=== PATIENT | female | born 1990 | race African-American/Black ===

== ENCOUNTER 2018-10-18 21:45 | Emergency (ER) | payer OTHER | END 2018-10-19 00:46 | disposition home or self-care (01) | LOC: M.ERS 21:45 | DX: K21.9 Gastro-esophageal reflux disease without esophagitis (principal); R07.9 Chest pain, unspecified ==

== ENCOUNTER 2018-12-20 09:40 | Observation (INO) | payer OTHER ==
[~2018-12-20 09:40] MED LIST: CARAFATE 1 GM TA1 GM PO; LANSOPRAZOLE30 MG PO
[2018-12-20 10:30] LABS: HEMOGLOBIN 12.4 gm/dL (12.0-15.0)
--- NOTE | 2018-12-20 12:03 | H ---
[address] [address] HISTORY AND PHYSICAL Name: RUBY JASSO Room: [facility]..#: [id number] Admission: 12/20/18 Attend Phys: Rasheeda Francisco MD Discharge: Date of : 89 Report #: [id number] THIS REPORT FOR: //name// CC: Rasheeda Kellogg DATE OF SERVICE: 12/20/2018 The patient to be treated on 12/20/2018. ADMITTING DIAGNOSIS: Symptomatic biliary colic. HISTORY OF PRESENT ILLNESS: The patient is a 28-year-old female, who presented to my office with complaints of right upper quadrant discomfort and dyspepsia. She was worked up by her private medical physician and found to have cholelithiasis and was referred for surgical treatment. PAST MEDICAL HISTORY: Unremarkable. PAST SURGICAL HISTORY: Also unremarkable. SOCIAL HISTORY: She does not smoke or currently drink any alcohol. She does not use illegal drugs. REVIEW OF SYSTEMS: Otherwise, just abdominal pain, no chest pain, cough or shortness of breath. PHYSICAL EXAMINATION: GENERAL: Modestly obese well-developed female. HEAD, EARS, EYES, NOSE AND THROAT: Unremarkable. NECK: Supple. LUNGS: Clear. CARDIAC: Regular rate and rhythm without murmur. ABDOMEN: Soft, normal bowel sounds. EXTREMITIES: Without varicosities or pitting edema. IMPRESSION: Symptomatic cholelithiasis. PLAN: I have outlined laparoscopic cholecystectomy, its risks and benefits including bleeding, infection, hernia, injury to bile ducts or bowel, which she understands those risks and benefits and wishes to proceed with surgical treatment. <ELECTRONICALLY SIGNED> By: Rasheeda Francisco MD 12/20/18 1203 1211 1226Rasheeda Francisco MD /nt
--- NOTE | 2018-12-20 18:37 | NUR ---
PATIENT ARRIVED TO UNIT AT 182. ALERT AND ORIENTED X 4. DROWSY, BUT EASY TO AROUSE. VITAL SIGNS STABLE ON 3L O2 NASAL CANULA. AFEBRILE. DENIES PAIN AND NAUSEA AT THIS TIME. ORIENTED PATIENT TO ROOM. CALL LIGHT WITHIN REACH. NURSING WILL CONTINUE TO MONITOR.
[2018-12-20 18:42] VITALS: BP 120/69
[2018-12-20 19:29] LABS: HEMATOCRIT 38.9 % (37.0-47.0); HEMOGLOBIN 12.8 gm/dL (12.0-15.0); MCH 27.9 pg (26.0-34.0); MCV 84.5 fL (80.0-100.0); MPV 8.3 fl. (7.2-11.1); RBC 4.6 mil/uL (4.20-5.00); WBC 13.4 thou/uL (4.0-11.0)
[2018-12-20 20:35] VITALS: BP 111/65
--- NOTE | 2018-12-20 22:55 | OP ---
[address] [address] OPERATIVE REPORT Name: RUBY JASSO Room: [address] Richard Mishra#: [id number] Admission: 12/20/18 Attend Phys: Rasheeda Francisco MD Discharge: Date of : 89 Report #: [id number] THIS REPORT FOR: //name// CC: Rasheeda Kellogg DATE OF SERVICE: 12/20/2018 PREOPERATIVE DIAGNOSIS: Symptomatic biliary colic. POSTOPERATIVE DIAGNOSIS: Chronic cholecystitis. OPERATIVE PROCEDURE: Laparoscopic cholecystectomy. ANESTHESIA: General endotracheal. OPERATIVE FINDINGS: Gallbladder without adhesions, small stones. DESCRIPTION OF PROCEDURE: The patient was placed under general endotracheal anesthesia and the abdomen was prepped and draped in a sterile fashion. A timeout taken. IV antibiotics administered. I began by infiltrating in the infraumbilical crease with 0.5% Marcaine followed by a transverse incision at that location. Pickups and cautery were used to dissect down to the anterior abdominal wall with the aid of an S retractor. The abdominal wall was grabbed with 2 Kochers and cleared with cautery and then transversely incised with a #15 scalpel blade. Blunt dissection with a mosquito into the peritoneal cavity was accomplished without injury to underlying abdominal viscera. A 0 PDS was looped through this incision site and a size 12 applied medical Brando trocar was placed into the peritoneal cavity and secured at the skin. Insufflation with carbon dioxide to 5 liters was completed and a 5 mm 30-degree scope was inserted. The right upper quadrant was inspected and under direct visualization, infiltration in the subcostal margin region at the epigastric, midclavicular and anterior axillary line followed by 3 small incisions and followed by 3 bladeless 5 mm trocars. The patient then was placed in reverse Trendelenburg left lateral decubitus position and the gallbladder was grasped in 2 locations and tented towards the diaphragm. Meticulous dissection at the triangle of Calot dissected out both the cystic artery. These were then encircled with 3 Hemoclips and divided with laparoscopic scissors. Handheld cautery then was used to dissect the gallbladder off the undersurface of the liver. During that dissection, we got into the back wall of the gallbladder and a small amount of stones, debris and bile escaped into the subhepatic space. Once the gallbladder was free from its attachment, I changed position of the camera from the umbilical to the epigastric port and through the umbilical port, an Endopouch was fed into the abdomen. The gallbladder was placed into the pouch and the pouch was closed. I then retrieved the gallbladder and pouch through the umbilical incision site with pneumoperitoneum [place] [address] OPERATIVE REPORT Name: RUBY JASSO Room: [address] M.R.#: [id number] Admission: 12/20/18 Attend Phys: Rasheeda Francisco MD Discharge: Date of : 89 Report #: [id number] the camera placed at the umbilical port. I then carefully irrigated and aspirated the subhepatic space until there was no bile coming back from the effluent of aspiration. I then cauterized small bleeding points in the liver bed. Pneumoperitoneum was then released. Laparoscopic instruments and trocars were removed and the patient was placed back in the neutral position. The 0 PDS was tied at the umbilical stalk and infiltrated with 0.5% Marcaine and then all four incisions were closed with buried 4-0 PDS sutures and sealed with Dermabond. Estimated blood loss 1 mL. Sponge and instrument count correct. The patient was extubated, returned to recovery in stable condition. <ELECTRONICALLY SIGNED> By: Rasheeda Francisco MD 12/20/18 2255 1313 [id number] Francisco MD /nt
[2018-12-21 00:17] VITALS: BP 108/57
[2018-12-21 03:36] VITALS: BP 105/59; BP 108/57
[2018-12-21 04:20] LABS: ALBUMIN 3.1 g/dL (3.4-5.0); CALCIUM 8.6 mg/dL (8.5-10.1); CREATININE 0.7 mg/dL (0.6-1.3); TOTAL BILIRUBIN 0.7 mg/dL (<0.1-1.0); TOTAL PROTEIN 6.8 g/dL (6.4-8.2)
[2018-12-21 05:40] LABS: HEMATOCRIT 38.4 % (37.0-47.0); HEMOGLOBIN 12.5 gm/dL (12.0-15.0); MCHC 32.5 g/dL (28.0-37.0); MCV 86.2 fL (80.0-100.0); MPV 8.6 fl. (7.2-11.1); RBC 4.45 mil/uL (4.20-5.00); RDW-CV 12.9 % (10.5-14.5); WBC 12.2 thou/uL (4.0-11.0)
--- NOTE | 2018-12-21 06:17 | NUR ---
PT RECEIVING IV PAIN MED X1 FOR CO LOW ABD PAIN AT HS, HYDROCODONE X1 0100. TOLERATING CLEAR LIQUIDS-ATE HALF AN ICE CREAM SHAKE FAMILY MEMBERS BROUGHT IN WITHOUT N/V. O2 2L NC, CONTINUOUS PULSE OX ON. AM LABS DRAWN. L HAND IVF INFUSING PER PUMP. UP WITH SBA TO BSC TO VOID OVERNIGHT. SCDS ON AND OPERATING. ANTICIPATING DISCHARGE HOME TODAY. ABLE TO USE CALL LITE AND MAKE NEEDS KNOWN.
[2018-12-21 07:50] VITALS: BP 121/77
[2018-12-21] MEDS ORDERED: NORCO 5-325 TA1 EAC1 PO (09:14)
[2018-12-21 09:15] VITALS: BP 121/77
--- NOTE | 2018-12-21 10:28 | NUR ---
SPOKE WITH DR. MEHTA THIS AM, OK FOR PATIENT TO HAVE REG DIET AND DISCHARGE HOME IF TOLERATING AND PAIN UNDER CONTROL. PATIENT GIVEN PRN HYDROCODONE FOR ABD PAIN, WELL CONTROLLED. TOLERATED REG DIET. DERMABOND REMAINS INTAKE TO ABD. PATIENT VERBALIZES UNDERSTANDING OF PAPERWORK AND SCRIPTS. IV DC'D. PATIENT TAKEN OUT VIA WHEELCHAIR WITH ALL BELONGINGS.
--- NOTE | 2018-12-22 13:07 | PATH ---
[facility] [address] [place] [address] PATHOLOGY RPT PROCEDURE Name: RUBY JASSO Room: [address] Richard Mishra#: [id number] Admission: 12/20/18 Date of : 89 Discharge: 12/21/18 Report #: [id number] Path Case #: [id number] [facility] Accession Number: [id number] . 01 Material submitted: . gallbladder - GALLBLADDER WITH CONTENTS . 01 Clinical history: . Calculus of gallbladder . 02 Diagnosis: Gallbladder with contents: - Chronic cholecystitis and cholelithiasis. (FLAVIO:svitlana; 12/22/2018) S 12/22/2018 1059 Local . 02 Electronically signed: . Oskar Snyder MD, Pathologist NPI- [id number] . 01 Gross description: . The specimen is received in formalin, labeled "Ruby Jasso, gallbladder with contents". Received is a previously punctured gallbladder measuring 6.0 x 2.8 x 2.0 cm in greatest dimensions displaying a blue-hahn serosal surface. Opening the specimen reveals a velvety, bile-stained mucosa with a gallbladder wall thickness of 0.1 cm. Calculi are present displaying a black and flaky appearance, and no masses or lesions are noted grossly. Termite Treater Helper sections, to include the proximal margin, are submitted in cassette A1. (CAA; 12/21/2018) QAC/QAC 12/21/2018 0836 Local . 02 Pathologist provided ICD-10: K80.10 . 02 CPT . 066883 Specimen Comment: A courtesy copy of this report has been sent to Specimen Comment: [phone], . Specimen Comment: Report sent to / DR GLOVER Performed at: [address] [facility], [place], [place] [id number] MD Guillermo Fagan MD Phone: [phone] Performed at: 02 [facility] [address], [place], [place] [id number] MD Oskar Snyder MD Phone: [phone]
== END 2018-12-21 10:10 | disposition home or self-care (01) ==
LOC: M.SUR 09:40 → M.TBA 16:33 → M.ORTHSURG 18:14
PROVIDERS: ADMIT Surgery
DX: K80.44 Calculus of bile duct with chronic cholecystitis without obstruction (principal)

== ENCOUNTER → 2019-01-06 | Outpatient (CLI) | payer OTHER ==
[~2019-01-06] MED LIST changes: +NORCO 5-325 TA1 EAC1 PO
== END ==
LOC: M.ULTRA 10:17
DX: R10.9 Unspecified abdominal pain (principal); Z90.49 Acquired absence of other specified parts of digestive tract